=== PATIENT | female | born 1940 | race Caucasian/White ===

== ENCOUNTER → 2017-05-14 | Outpatient (CLI) | payer OTHER, BC | LOC: FIMAGING 16:37 | PROVIDERS: ATTEND Registered Nurse | DX: R05 Cough (principal) ==

== ENCOUNTER → 2017-05-16 | Outpatient (CLI) | payer OTHER, BC | LOC: BHCLAF 13:15 | PROVIDERS: ATTEND Internal Medicine Cardiovascular Disease | DX: R01.1 Cardiac murmur, unspecified (principal); I42.9 Cardiomyopathy, unspecified | CPT/HCPCS: 93306-PO ==

== ENCOUNTER → 2017-08-07 | Outpatient (CLI) | payer OTHER, BC | LOC: FIMAGING 11:42 | PROVIDERS: ATTEND Family Medicine | DX: Z12.31 Encounter for screening mammogram for malignant neoplasm of breast (principal) | CPT/HCPCS: G0202 ==

== ENCOUNTER → 2017-12-26 | Outpatient (CLI) | payer OTHER, BC | LOC: FIMAGING 09:57 | PROVIDERS: ATTEND Podiatrist | DX: M71.371 Other bursal cyst, right ankle and foot (principal) ==

== ENCOUNTER 2018-01-28 10:17 | Day surgery (SDC) | payer OTHER, BC ==
[2018-01-28] MEDS ORDERED: LIDOCAINE 1% 2 ML INJ ID PRN (11:19)
[2018-01-28] MEDS ORDERED: LR 1,000 ML IV ONE (11:19)
[2018-01-28] MEDS ORDERED: CLINDAMYCIN 900 MG/DEXTROSE 50 ML IV ONE (11:22)
--- NOTE | 2018-01-28 12:02 | PDANEPAE ---
ANE Past Medical History - Cardiovascular History Hx Hypertension: Yes Hx Arrhythmias: No Hx Chest Pain: No Hx Coronary Artery / Peripheral Vascular Disease: Yes Hx CHF / Valvular Disease: Yes Hx Palpitations: Yes Cardiovascular History Comment: CARDIOMYOPATHY. MITRAL REGURITATION - Pulmonary History Hx COPD: No Hx Asthma/Reactive Airway Disease: No Hx Recent Upper Respiratory Infection: No Hx Oxygen in Use at Home: No Hx Sleep Apnea: Yes Sleep Apnea Screening Result - Last Documented: Positive Pulmonary History Comment: STABLE PULMONARY NODULES. HAIR DX 2011 - Neurologic History Hx Cerebrovascular Accident: No Hx Seizures: Yes Hx Dementia: No Neurologic History Comment: INTERMITTENT SEIZURE LAST 2011. - Endocrine History Hx Diabetes: No Endocrine History Comment: HYPOTHYROID - Renal History Hx Renal Disorders: No - Liver History Hx Hepatic Disorders: No - Neurological & Psychiatric Hx Hx Neurological and Psychiatric Disorders: Yes Neurological / Psychiatric History Comment: seizures - Cancer History Hx Cancer: No - Congenital Disorder History Hx Congenital Disorders: No - GI History Hx Gastrointestinal Disorders: Yes Gastrointestinal History Comment: GERD,acid reflux, crest autoimmune disease - Other Health History Other Health History: SCLERODERMA. MAINT RX FOR PREV THROAT INFECTION 2011. chronic anemia - Chronic Pain History Chronic Pain: Yes (sciatica right side) - Surgical History Prior Surgeries: LETY CATARACT. THROAT INFECTION. MULTIPLE LETY FOOT. REMVL RT OVARY. TONSILLECTOMY ANE Review of Systems Review of Systems: - Exercise capacity METS (RN): 3 METS - Pacemaker Pacemaker Type: Bi-Ventricular Pacemaker Cpr Instructor: [employer] Pacemaker Model: anthem RF Pacemaker Mode: DDDR Date Pacemaker Last Checked: 11/18/17 ANE Patient History - Allergies Allergies/Adverse Reactions: ceftriaxone sodium [From Rocephin] Allergy (Severe, Verified 01/27/18 14:47) Other-Enter Comments ertapenem sodium [From Invanz] Allergy (Severe, Verified 01/27/18 14:47) Other-Enter Comments lorazepam [From Ativan] Allergy (Severe, Verified 01/27/18 14:47) Other-Enter Comments - Home Medications Home Medications: CARVEDILOL 11/20/09 [Last Taken 01/28/18 07:00] Crestor 11/20/09 [Last Taken 2 Days Ago ~01/26/18] Levothyroxine 11/20/09 [Last Taken 01/28/18 07:00] AMOXICILLIN 01/27/18 [Last Taken 2 Days Ago ~01/26/18] Codiene/Acetominophen 01/27/18 [Last Taken 1 Day Ago ~01/27/18] Hydroxychloroquine Sulfate 01/27/18 [Last Taken Unknown] Norvasc 2.5 mg (*) 01/27/18 [Last Taken 01/28/18 07:00] Pantoprazole Sodium 01/27/18 [Last Taken 01/28/18 07:00] oxyCODONE IR [Oxy Ir] 01/27/18 [Last Taken Unknown] lamOTRIGine [Lamotrigine] 01/28/18 [Last Taken 01/28/18 07:00] - NPO status NPO Since - Liquids (Date): 01/28/18 NPO Since - Liquids (Time): 07:00 NPO Since - Solids (Date): 01/27/18 NPO Since - Solids (Time): 19:30 - Smoking Hx Smoking Status: Never smoked - Family Anes Hx Family Hx Anesthesia Complications: none ANE Labs/Vital Signs - Vital Signs Height: 147.32 cm Weight: 52.163 kg ANE Physical Exam - Airway Neck exam: FROM Mallampati Score: Class 2 Mouth exam: small mouth opening - Pulmonary Pulmonary: no respiratory distress - Cardiovascular Cardiovascular: regular rate and rhythym - ASA Status ASA Status: II ANE Anesthesia Plan Total IV Anesthesia: Yes
[2018-01-28] MEDS ORDERED: LIDOCAINE 1% 300 MG/30 ML SDV ONE (12:18)
[2018-01-28] MEDS ORDERED: BUPIVACAINE/EPI 0.5% 30 ML SDV ONE (12:18)
[2018-01-28] MEDS ORDERED: BACITRACIN 50,000 UNITS/10 ML SYR IRR ONE (12:18)
[2018-01-28] MEDS ORDERED: DEXAMETHASONE 4 MG/ML VIAL ONE (12:18)
[2018-01-28] MEDS ORDERED: BUPIVACAINE 0.5% 30 ML SDV ONE (12:19)
[2018-01-28] MEDS ORDERED: ROPIVACAINE HCL 20 MG/10 ML INJ EP ONE (12:19)
[2018-01-28] MEDS ORDERED: CLINDAMYCIN 600 MG/DEXTROSE 50 ML IV ONE (12:30)
--- NOTE | 2018-01-28 12:33 | PDHPUP ---
History & Physical Update H&P update statement: This history and physical update is based on an assessment of the patient which was completed after admission or registration (within 24 hours), but prior to the surgery/procedure. H&P update: H&P reviewed & patient examined (no changes)
[2018-01-28] MEDS ORDERED: ROPIVACAINE HCL 150 MG/30 ML INJ ONE (12:41)
[2018-01-28] MEDS ORDERED: fentaNYL 100 MCG/2 ML INJ ONE (12:46)
[2018-01-28] MEDS ORDERED: PROPOFOL/EMULSION 500 MG/50 ML BOTTLE IV ONE (12:46)
[2018-01-28] MEDS ORDERED: LIDOCAINE 2% 100 MG/5 ML SYR ONE (12:48)
[2018-01-28] MEDS ORDERED: BACITRACIN ZINC 14.2 GM OINTTUBE TP ONE (14:31)
[2018-01-28] MEDS ORDERED: ALBUTEROL 3 ML DEYVIAL IH PRN (15:02)
[2018-01-28] MEDS ORDERED: NALOXONE HCL 0.4 MG/ML INJ IVP PRN (15:02)
[2018-01-28] MEDS ORDERED: ONDANSETRON 4 MG/2 ML VIAL IVP PRN (15:02)
[2018-01-28] MEDS ORDERED: fentaNYL 100 MCG/2 ML INJ IVP PRN (15:02)
--- NOTE | 2018-01-28 15:02 | POSTANESTH ---
Post Anesthetic Evaluation Cardiovascular Status: Similar to Pre-Op Cond Respiratory Status: Similar to Pre-op Cond. Level of Consciousness/Mental Status: Alert and Oriented Pain Control: Adequate, Prn Tx Ordered Nausea/Vomiting Control: Adequate, Prn Tx Ordered Complications Possibly Related to Anesthesia: None Noted
[2018-01-28] MEDS ORDERED: OXYCODONE/APAP 5/325 TAB PO PRN (15:03)
--- NOTE | 2018-01-28 15:03 | POSTOPPROG ---
Post Op Note Date of Operation: 01/28/18 Surgeon: Shanna Langston Anesthesiologist: ginette Marina Pre-op Diagnosis: metatarsalgia 2nd,3rd,4th and 5th,hammertoe 2nd, soft tissue mass Post-op Diagnosis: same Indication: pain Procedure: excision of soft tissue mass, excision of metatarsal heads 2,3,4,5 R foot Findings: osteopenia advanced. Inf/Abcess present in the surg proc area at time of surgery?: No EBL: Minimal Complications: none
[2018-01-28 15:26] VITALS: PULSE 68
[2018-01-28 15:42] VITALS: RESP 21
[2018-01-28 16:27] VITALS: BP 140/79; TEMP 97.5; O2SAT 95
--- NOTE | 2018-01-28 18:28 | GOP ---
[f rep st] OPERATIVE REPORT DATE OF OPERATION: SURGEON: Shanna Langston DPM ANESTHESIA: IV sedation with a local anesthetic block. ANESTHESIOLOGIST: Jaime Marina MD. PREOPERATIVE DIAGNOSIS: Painful dislocated 2nd hammertoe; metatarsalgia 2nd, 3rd, 4th, and 5th with extensor contractures at the level of the 2nd, 4th, and 5th metatarsophalangeal joints; soft tissue m ass, plantar 2nd digital sulcus, all right foot. POSTOPERATIVE DIAGNOSIS: Painful dislocated 2nd hammertoe; metatarsalgia 2nd, 3rd, 4th, and 5th with extensor contractures at the level of the 2nd, 4th, and 5th metatarsophalangeal joints; soft tissue mass, plantar 2nd digital sulcus, all right foot. PROCEDURE PERFORMED: Resection of the soft tissue mass; resection of metatarsal heads 2nd, 3rd, 4th, and 5th with extensor tendon releases and reduction of the dislocated 2nd hammertoe with resection o f bone from the base of the proximal phalanx; K-wire fixation of the 4th and 5th digits, all right fo ot. FINDINGS: INDICATIONS: The patient presented to the hospital approximately an hour and a half prior to foot palencia rgery after having been n.p.o. past midnight. Patient's preoperative history and physical and all la b studies were reviewed and EKG, and there were no contraindications to the proposed procedures. The patient was given clindamycin 600 mg IV 30 minutes prior to foot surgery. I reviewed to the patient the proposed procedures again, reviewing her x-rays and there may be a possibility that the 2nd digi julio amputation does not have to be performed but it can be reduced. The patient consented and agreed to the proposed procedures. DESCRIPTION OF PROCEDURE: The patient was taken to the OR room and placed on the OR table in a supin e position where the appropriate anesthetic agents were administered. This was supplemented with a b lock to the right foot utilizing a total of 12 cc of ropivacaine 0.5% and 12 cc of 1% lidocaine plain . This block was given to the posterior tibial nerve as it courses through the tarsal tunnel and pro ximal aspects of the bases of the 2nd, 3rd, 4th, and 5th metatarsals. The right foot was then preppe d and draped in the usual aseptic fashion and covered with a sterile stockinette. A sterile pneumati c ankle tourniquet was applied and padded well underneath with Webril. Utilizing elevation and overl scar Esmarch bandage, the right foot was exsanguinated and the tourniquet was inflated to a pressure of 220 mmHg. The foot was lowered to the orthopedic table. Attention was directed first to the dors al aspect of the 2nd metatarsophalangeal joint where an approximate 3 cm linear longitudinal incision was made. Incision was deepened through the subcutaneous tissues to the level of the 2nd metatarsop halangeal joint and extensor tendon. The contracted extensor tendon was released and a linear capsul ar incision was made, and the capsular tissues were freed from the head of the 2nd metatarsal. The n heather of the 2nd metatarsal was then identified, and the head of the 2nd metatarsal was resected and pl aced on the back table. Due to the persistent degree of contracture of the 2nd digit, the base of th e proximal phalanx of the 2nd digit was resected and placed on the back table. The 2nd digit could n ow be reduced into a rectus position at the level of the 2nd metatarsophalangeal joint. Attention wa s then directed to the dorsal aspect of the 3rd metatarsal head, where an approximate 2 cm linear leslie gitudinal incision was made. The incision was deepened through the subcutaneous tissues to the level of the capsular tissues, taking care to preserve the neurovascular structures. Any bleeders were cl amped and cauterized as needed. A linear capsular incision was made, and the capsular tissues were f aiden from the head of the 3rd metatarsal. The 3rd metatarsal head was then resected at the level of the neck region and continued dissection was necessary to release it from the plantar soft tissues st ructures where there was significant adherence and fibrosis. There was additional hypertrophic bone noted to the distal end of the 3rd metatarsal, which was then resected and placed on the back table. The surgical site was copiously irrigated with sterile saline bacitracin solution. On inspection of the 3rd and 2nd digital sulcus, the soft tissue mass was identified at the level of the medial aspec t of the 3rd digital sulcus and was excised and placed on the back table for pathologic evaluation. The soft tissue mass had a fibrous consistency. It was a garcia, slight correa discoloration. Attention was then directed to the dorsal aspect of the 4th metatarsophalangeal joint where an approximate 2-3 cm linear longitudinal incision was made. The incision was deepened through the subcutaneous tissues to the level of the extensor tendon, taking care to preserve the neurovascular structures. Any blee ders were cauterized as needed. The contracted extensor tendon was then released, and a linear capsu lar incision was made, and the capsular tissue was freed from the head of the 4th metatarsal. Utiliz ing the sagittal saw in a dorsal plantar direction, the head of the 4th metatarsal was resected and p laced on the back table. Attention was then directed to the dorsal aspect of the 5th metatarsophalan geal joint where an approximate 2-3 cm linear longitudinal incision was made. This incision was deep ened also through the subcutaneous tissues to the level of the extensor tendon, taking care to preser ve the neurovascular structures. Any bleeders were cauterized as needed. The contracted extensor te ndon was released and again a linear capsular incision was made, and the capsular tissues were reflec jojo off the head of the 5th metatarsal head. Utilizing the sagittal saw, the head of 5th metatarsal was resected and placed on the back table. It should be mentioned that significant bony hypertrophy presented to the 2nd metatarsal head and osteopenia and bony hypertrophy to the 3rd metatarsal head. A C-arm was utilized to check the length of the metatarsals to ensure a fairly congruent parabola. The surgical sites were copiously irrigated with a sterile saline bacitracin solution. 0.054 K-wires were then advanced, first through the distal tip of the 2nd digit entering the base of the proximal phalanx, then holding the digit linear to the 2nd metatarsal where the K-wire was advanced proximally . The same procedure was then performed to the 4th and 5th digits. A C-arm was checked for placemen t of the K-wires. The K-wire to the 5th digit exited dorsal base of the proximal phalanx; however, d ecision was made to keep the K-wire intact since the 5th digit had a rigid contracture to the proxima l interphalangeal joint from prior surgery. A decision was made not to do additional hammertoe surge jose r based on the patient's history, past surgeries, and concern of delayed healing. The tourniquet was released prior to placement of the K-wires. There was immediate capillary refill to all the digits, and there was hemostasis. However, once the K-wires were placed through the digit s, the 2nd digit lost its pink and normal discoloration. Thus, the K-wire to the 2nd digit was remov ed, and normal capillary fill time returned to the 2nd digit. The skin was reapproximated with 4-0 P rolene. The ends of the K-wires to the 4th and 5th digits were bent to 90 degrees, cut, and caps wer e applied. Bacitracin ointment was placed to the tips of the 4th and 5th digits. A total of 6 cc of 0.5% Marcaine plain was injected proximal to the surgical sites. Mildly compressive dry sterile gau ze dressings were then applied with Xeroform, 4 x 4 gauze, Lizzie, and Kerlix then an Jad wrap. The patient tolerated the procedures and anesthesia well, was transferred the to recovery room with v ital signs stable and vascular status intact to the right lower extremity. In the recovery room, the patient received postoperative oral and written home care instructions. The patient had been dispen sed a Darco shoe to wear when ambulating. The Darco shoe was accommodated with 2 quarter-inch Plasta zote inserts to help off-weight the digits when ambulating. The patient is permitted to bear weight on the foot as tolerated utilizing crutches or walker for ambulation assist. Prescriptions had been given for Tylenol No. 4 to take postoperatively as prescribed for pain. The patient was dispensed a cryo cuff and instructed on its usage. She is scheduled for a first postoperative visit in 2 days. She is to call the office earlier if any questions or problems arise. I have reviewed with the jori little's DVT prevention and that she is permitted to perform ankle and knee pump exercises severa l times a day starting tomorrow. /[id number]/MODL
== END 2018-01-28 16:30 | disposition home or self-care (01) ==
LOC: FSGY 10:17
PROVIDERS: ATTEND Podiatrist
DX: M20.41 Other hammer toe(s) (acquired), right foot (principal); S93.124A Dislocation of metatarsophalangeal joint of right lesser toe(s), initial encounter; M24.574 Contracture, right foot; R22.41 Localized swelling, mass and lump, right lower limb
CPT/HCPCS: C1713; J1100; J2001; J2704; J2795; J3010

== ENCOUNTER 2018-04-11 20:41 | Emergency (ER) | payer OTHER, BC ==
[2018-04-11 20:50] VITALS: BP 142/69
[2018-04-11] MEDS ORDERED: PROPARACAINE/FLUORESCEIN SOD 5 ML OPHT.BTL ONE (20:59)
--- NOTE | 2018-04-11 21:43 | EDPHY ---
H & P Time Seen by Provider: 04/11/18 21:23 HPI/ROS: CHIEF COMPLAINT: Redness left eye HISTORY OF PRESENT ILLNESS: 77-year-old female presents to the emergency department with concerns about redness to her left eye. She has no associated pain. She has no visual complaints. No foreign body sensation. She has had something like this in the past that is typically resolved. Denies trauma. No other symptoms. ROS: Denies headache, double vision, blurry vision, foreign body sensation or pain. Past Medical/Surgical History: Pace maker, CREST syndrome Social History: Smoking Status: Never smoked Physical Exam: Visual Acuity: noted from Nurse's notes. Pupils:equal round and reactive to light EOMI Lids: no edema or swelling Skin: no proptosis, no periorbital erythema or swelling, no vesicles Conjunctivae: Subconjunctival hemorrhage noted to the left eye, medial aspect. No evidence of retained foreign body or corneal abrasion. Cornea: exam with fluorescein shows Anterior chamber:normal, no hyphema or hypopyon Constitutional: Initial Vital Signs Temperature (C) 36.5 C 04/11/18 20:44 Heart Rate 83 04/11/18 20:44 Respiratory Rate 16 04/11/18 20:44 Blood Pressure 142/69 H 04/11/18 20:44 O2 Sat (%) 92 04/11/18 20:44 O2 Delivery Mode Room Air Allergies/Adverse Reactions: ceftriaxone sodium [From Rocephin] Allergy (Severe, Verified 04/11/18 20:49) Other-Enter Comments ertapenem sodium [From Invanz] Allergy (Severe, Verified 04/11/18 20:49) Other-Enter Comments lorazepam [From Ativan] Allergy (Severe, Verified 04/11/18 20:49) Other-Enter Comments Home Medications: Medication Instructions Recorded CARVEDILOL 11/20/09 Crestor 11/20/09 Levothyroxine 11/20/09 Codiene/Acetominophen 01/27/18 Hydroxychloroquine Sulfate 01/27/18 Norvasc 2.5 mg (*) 01/27/18 Pantoprazole Sodium 01/27/18 lamOTRIGine [Lamotrigine] 01/28/18 MDM/Departure - [facility] ED Course/Re-evaluation: 77-year-old female presents to the emergency department with redness to the left eye. Examination reveals subconjunctival hemorrhage. The patient has no pain or foreign body sensation. She has no pain with applying global pressure to her left eye. Patient was reassured that her symptoms would resolve. She was instructed to return if she developed any visual complaints or any other concerns. - Depart Disposition: Home, Routine, Self-Care Clinical Impression: Subconjunctival hemorrhage of left eye Condition: Good Instructions: Subconjunctival Hemorrhage (ED) Additional Instructions: If you have any pain associated with this or change in vision, please return to the emergency department immediately. The blood will resolve on its own typically within 2 weeks. Return sooner if you have any other concerns. Referrals: Kimberly Reynolds MD [Primary Care Provider] - As per Instructions Eduardo Hutton MD [Medical Doctor] - 2-3 days, if not improved ( Screw Remover on-call)
== END 2018-04-11 21:40 | disposition home or self-care (01) ==
DX: H11.32 Conjunctival hemorrhage, left eye (principal); Z95.0 Presence of cardiac pacemaker

== ENCOUNTER → 2018-07-14 | Outpatient (CLI) | payer OTHER, BC | LOC: BHFA 13:15 | PROVIDERS: ATTEND Internal Medicine Interventional Cardiology | DX: I34.0 Nonrheumatic mitral (valve) insufficiency (principal) ==

== ENCOUNTER → 2018-12-07 | Outpatient (CLI) | payer OTHER, BC | LOC: BHCLAF 14:00 | PROVIDERS: ATTEND Internal Medicine Cardiovascular Disease | DX: I42.9 Cardiomyopathy, unspecified (principal); I34.0 Nonrheumatic mitral (valve) insufficiency; I27.20 Pulmonary hypertension, unspecified; Z95.0 Presence of cardiac pacemaker | CPT/HCPCS: 93306-PO ==

== ENCOUNTER → 2018-12-23 | Outpatient (CLI) | payer OTHER, BC | LOC: FIMAGING 12:11 | PROVIDERS: ATTEND Internal Medicine Hematology & Oncology | DX: N95.8 Other specified menopausal and perimenopausal disorders (principal); M81.0 Age-related osteoporosis without current pathological fracture ==